=== PATIENT | female | born 1930 | race Caucasian/White ===

== ENCOUNTER 2021-01-12 12:02 | Outpatient (CLI) | payer MEDICARE, OTHER | END 2021-01-12 12:03 | disposition home or self-care (01) | LOC: CSHWCC 12:02 | PROVIDERS: ATTEND Nurse Practitioner Family | DX: S31.829D Unspecified open wound of left buttock, subsequent encounter (principal); T14.90XD Injury, unspecified, subsequent encounter; M06.9 Rheumatoid arthritis, unspecified; M21.961 Unspecified acquired deformity of right lower leg; M79.604 Pain in right leg; R23.8 Other skin changes | CPT/HCPCS: 97139; G0463; 99203 ==

== ENCOUNTER 2021-01-19 14:58 | Outpatient (CLI) | payer MEDICARE, OTHER | END 2021-01-19 14:59 | disposition home or self-care (01) | LOC: CSHWCC 14:58 | PROVIDERS: ATTEND Nurse Practitioner Family | DX: S31.829D Unspecified open wound of left buttock, subsequent encounter (principal); M06.9 Rheumatoid arthritis, unspecified; M21.961 Unspecified acquired deformity of right lower leg; M79.604 Pain in right leg; R23.8 Other skin changes | CPT/HCPCS: 99213; G0463 ==